=== PATIENT | female | born 1950 | race Caucasian/White ===

== ENCOUNTER → 2017-06-19 | Outpatient (CLI) | payer OTHER ==
[~2017-06-19] MED LIST: Augmentin 875-1 EACH PO; CELE200; CEPH500 PO; CIPR500 PO; Crutch1 EACH MISC; HYDACE5 PO; Norco 5-325 Ta1 EACH PO; OXYACE5T PO; OXYC5 PO; PRED5 PO; Percocet 5-3251 EACH PO; SERT100 PO; SULTRIDS PO; SUMA25 PO; SYNTHROID25 MCG PO
== END | disposition home or self-care (01) ==
LOC: LAB SHORT 13:45 → PLD 13:45
DX: L92.0 Granuloma annulare (principal)
CPT/HCPCS: 88305; 88313

== ENCOUNTER 2018-07-02 13:14 | Emergency (ER) | payer OTHER ==
[~2018-07-02] VITALS: Ht 172.7 cm; Wt 52.2 kg
[2018-07-02] MEDS ORDERED: Norco 5-325 Ta1 EACH PO (14:08)
== END 2018-07-02 14:19 | disposition home or self-care (01) ==
LOC: ER 13:14
DX: S22.42XA Multiple fractures of ribs, left side, initial encounter for closed fracture (principal); V80.010A Animal-rider injured by fall from or being thrown from horse in noncollision accident, initial encounter; Z79.899 Other long term (current) drug therapy; E03.9 Hypothyroidism, unspecified; Z87.891 Personal history of nicotine dependence
CPT/HCPCS: 71101; 99283-25

== ENCOUNTER → 2020-12-31 | Outpatient (CLI) | payer MEDICARE, OTHER ==
[~2020-12-31] MED LIST changes: +HYDR1TAB94 PO
[2020-12-31 13:25] LABS: Stool Occult Blood Guaiac 1 Neg (Neg)
[2020-12-31 13:26] LABS: Stool Occult Blood Guaiac 2 Neg (Neg); Stool Occult Blood Guaiac 3 Neg (Neg)
== END ==
LOC: LAB 10:20 → LAB SHORT 10:20 → OLS 10:20
PROVIDERS: Internal Medicine
DX: D64.9 Anemia, unspecified (principal)
CPT/HCPCS: 82272

== ENCOUNTER → 2021-03-24 | Outpatient (CLI) | payer OTHER ==
[2021-03-24 10:39] LABS: Creatinine Urine 40.5 mg/dL (27.00-270.00)
[2021-03-24 10:58] LABS: Calcium, Urine <5.0 mg/dL (< 17.5); Calcium, Urine Calculation Unable to Calculate mg/24hrs (42.0-353.0)
== END ==
LOC: LAB SHORT 09:26
PROVIDERS: Internal Medicine
DX: M80.0AXS Age-related osteoporosis with current pathological fracture, other site, sequela (principal)
CPT/HCPCS: 81050; 82340; 82570

== ENCOUNTER → 2021-08-14 | Outpatient (CLI) | payer MEDICARE, OTHER ==
[2021-08-14 11:53] LABS: Source, Urine Clean Catch
[2021-08-14 12:40] LABS: Appearance, Urine Clear (Clear); Bilirubin, Urine Neg (Neg); Blood, Urine 2+ (Neg); Color, Urine Yellow (P-Yellow); Glucose Qualitative, Urine Neg (Neg); Ketones, Urine Neg (Neg); Leukocyte Esterase, Urine 1+ (Neg); Nitrite, Urine Pos (Neg); Protein, Urine 1+ (Neg); Specific Gravity, Urine 1.025 (1.003-1.022); Urobilinogen, Urine NORM (Normal)
[2021-08-14 13:10] LABS: White Blood Cells, Urine 25-50 /hpf (0-5)
[2021-08-14 13:11] LABS: Bacteria Many /hpf; Squamous Epithelial Cells Not Seen /hpf (Few)
[2021-08-14 13:12] LABS: Mucus Mod (0-Heavy)
== END | disposition home or self-care (01) ==
LOC: LAB SHORT 11:53
PROVIDERS: Internal Medicine
DX: N39.0 Urinary tract infection, site not specified (principal)
CPT/HCPCS: 81001; 87077; 87086; 87186